=== PATIENT | female | born 1965 | race African-American/Black ===

== ENCOUNTER 2020-06-08 15:08 | Emergency (ER) | payer BC, OTHER ==
[~2020-06-08] VITALS: Ht 170.2 cm; Wt 113.0 kg
[2020-06-08 15:59] VITALS: BP 129/95
[2020-06-08] MEDS: KETOROLAC 30MG/ML VIAL IV STA (15:59)
[2020-06-08 16:15] LABS: BASOPHILS % 0.8 % (0.0-2.0); EOSINOPHILS % 3.4 % (0.0-5.0); HEMATOCRIT. 40.4 % (36.0-48.0); HEMOGLOBIN. 13.6 g/dL (12.0-16.0); LYMPHOCYTES % 28.6 % (20.0-50.0); MEAN CORPUSCULAR HEMOGLOBIN 32.2 pg (28.0-32.0); MEAN CORPUSCULAR VOLUME 95.9 fL (81.0-99.0); MEAN PLATELET VOLUME 6.7 fl (7.4-10.4); MONOCYTES % 8.9 % (2.0-8.0); NEUTROPHILS % 58.3 % (40.0-76.0); PLATELET 368 x1000/uL (130-400); RED BLOOD CELL COUNT 4.22 mill/uL (4.2-5.4)
[2020-06-08 16:20] LABS: CHLORIDE 104 mEq/L (98-107)
[2020-06-08 16:24] LABS: INR 0.9
[2020-06-08] MEDS ORDERED: IBUP-2029 MT (18:05)
[2020-06-08] MEDS ORDERED: METH-653 MT (18:05)
[2020-06-08 18:28] LABS: CLARITY URINE CLEAR (CLEAR); COLOR URINE YELLOW (YELLOW); KETONES URINE TRACE (NEGATIVE); LEUKOCYTE ESTERASE URINE NEGATIVE (NEGATIVE); NITRITE URINE NEGATIVE (NEGATIVE); OCCULT BLOOD URINE NEGATIVE (NEGATIVE); PROTEIN URINE NEGATIVE (NEGATIVE); SPECIFIC GRAVITY URINE 1.024 (1.005-1.030)
== END 2020-06-08 18:41 | disposition home or self-care (01) ==
LOC: ER 15:08
DX: M54.5 Low back pain (principal); E78.00 Pure hypercholesterolemia, unspecified; I10 Essential (primary) hypertension
CPT/HCPCS: 36415; 74176; 80053; 81003; 83690; 85025; 85610; 96374; 99284; J1885